=== PATIENT | male | born 1970 | race Caucasian/White ===

== ENCOUNTER 2020-10-09 06:54 | Outpatient (NON) | payer BC, SELFPAY ==
[2020-10-09 14:23] LABS: Influenza Control Positive
[2020-10-10 18:38] LABS: SARS-CoV-2 RNA PCR Positive
== END 2020-10-09 06:55 ==
PROVIDERS: PCP Family Medicine; Visit Provider Family Medicine
DX: R05 Cough (principal); U07.1 COVID-19
CPT/HCPCS: 87635; 87804; C9803; U0003